=== PATIENT | female | born 1965 | race Caucasian/White ===

== ENCOUNTER 2017-07-28 22:26 | Observation (INO) ==
[2017-07-28] MEDS ORDERED: Aspirin 81 MG TAB.CHEW PO ONE (22:38)
[2017-07-28] MEDS ORDERED: 0.9 % Sodium Chloride 500 ML IVC ONE (22:38)
[2017-07-28] MEDS ORDERED: GI Cocktail 40 ML EACH PO ONE (22:39)
[2017-07-28 22:53] LABS: Basophils # 0.1 K/mcL (0.0-0.2); Basophils % 0.5 %; Eosinophils # 0.7 K/mcL (0.0-0.6); Eosinophils % 6.1 %; Hemoglobin 13.3 g/dL (11.5-15.4); Immature Granulocytes % 0.2 % (0-4); Lymphocytes # 5.3 K/mcL (0.6-4.6); Lymphocytes % 45.8 %; Mean Corpuscular HGB Conc 34.1 g/dL (31.6-35.5); Mean Corpuscular Hemoglobin 29.8 pg (28.0-33.3); Mean Corpuscular Volume 87.4 fL (83.0-100.0); Monocytes # 0.9 K/mcL (0.0-1.3); Monocytes % 7.4 %; Neutrophils # 4.6 K/mcL (1.6-8.9); Platelet Count 325 K/mcL (140-400); Red Blood Count 4.46 M/mcL (3.82-4.97)
[2017-07-28 22:55] LABS: Prothrombin Time 11.1 Seconds (9.4-12.1)
[2017-07-28 22:57] LABS: Activated Partial Thrombo Time 36.5 Seconds (26.0-36.0)
[2017-07-28] MEDS ORDERED: Isovue-370 500 ML INFUS..BTL IV ONE (23:14)
[2017-07-28 23:16] LABS: BUN/Creatinine Ratio 12 (6-26); Blood Urea Nitrogen 12 mg/dL (6-20); Calcium 10.2 mg/dL (8.6-10.3); Carbon Dioxide 26 mEq/L (23-29); Chloride 102 mEq/L (98-107); Glucose 127 mg/dL (70-105); Osmolality,Calculated 285 (280-300); Potassium 3.3 mEq/L (3.5-5.1); Sodium 137 mEq/L (136-145); eGFR For African Americans > 60 (> 60); eGFR For Non-African Americans 57 (> 60)
[2017-07-28 23:19] LABS: Troponin I 0.06 ng/mL (< 0.04)
[2017-07-28] MEDS ORDERED: Nitroglycerin 0.4 MG TAB.SUBL SL PRN (23:20)
[2017-07-28 23:26] LABS: Platelet Estimate Normal (Normal)
--- NOTE | 2017-07-29 01:36 | Emergency Department Note ---
Disposition Clinical Impression: Elevated troponin I level Chest pain Qualifiers: Chest pain type: unspecified Qualified Code(s): R07.9 - Chest pain, unspecified Disposition: Admitted As Inpatient Condition: Good General Adult HPI - General Chief complaint: ED Chest Pain Stated complaint: chest pain Time Seen by Provider: 07/28/17 22:28 Nursing Notes Reviewed: Yes Vital Signs Reviewed: Yes - History of Present Illness Pain Scale: 2 - Related Data Home Medications Medication Instructions Recorded Confirmed Omeprazole [PriLOSEC] 20 mg PO DAILY 07/29/17 07/29/17 Allergies Allergy/AdvReac Type Severity Reaction Status Date / Time Lodine Allergy Hives Uncoded 07/28/17 22:42 Past Medical History - Past Medical History Medical history: Reports: GERD - Social History Smoking Status: Former smoker Alcohol use: Reports: none Drug use: Reports: marijuana Physical Exam - General General appearance: alert Course Vital Signs Temperature 97.7 F 07/28/17 22:29 Pulse Rate 59 07/28/17 22:29 Respiratory Rate 20 07/28/17 22:29 Blood Pressure 173/113 07/28/17 22:29 O2 Sat by Pulse Oximetry 100 07/28/17 22:29 Temperature 97.7 F 07/28/17 22:29 Pulse Rate 98 07/29/17 02:03 Respiratory Rate 18 07/29/17 02:03 Blood Pressure 112/87 07/29/17 02:03 O2 Sat by Pulse Oximetry 98 07/29/17 02:03 Oxygen Delivery Oxygen Delivery Room Air Medical Decision Making - Lab Data Result diagrams: 07/28/17 22:35 07/28/17 22:35 Lab Results 07/28/17 07/28/17 07/28/17 Range/Units 22:35 22:35 22:35 WBC 11.6 H (4.3-11.1) K/mcL RBC 4.46 (3.82-4.97) M/mcL Hgb 13.3 (11.5-15.4) g/dL Hct 39.0 (35.3-44.9) % MCV 87.4 (83.0-100.0) fL MCH 29.8 (28.0-33.3) pg MCHC 34.1 (31.6-35.5) g/dL RDW 13.0 (11.5-14.5) % Plt Count 325 (140-400) K/mcL MPV 10.0 (9.4-12.4) fL Immature Gran % 0.2 (0-4) % Seg Neutrophils % 40.0 % Lymphocytes % 45.8 % Monocytes % 7.4 % Eosinophils % 6.1 % Basophils % 0.5 % Neutrophils # 4.6 (1.6-8.9) K/mcL Lymphocytes # 5.3 H (0.6-4.6) K/mcL Monocytes # 0.9 (0.0-1.3) K/mcL Eosinophils # 0.7 H (0.0-0.6) K/mcL Basophils # 0.1 (0.0-0.2) K/mcL Platelet Estimate Normal (Normal) PT 11.1 (9.4-12.1) Seconds INR 1.0 APTT 36.5 H (26.0-36.0) Seconds Sodium 137 (136-145) mEq/L Potassium 3.3 L (3.5-5.1) mEq/L Chloride 102 (98-107) mEq/L Carbon Dioxide 26 (23-29) mEq/L BUN 12 (6-20) mg/dL Creatinine 1.03 (0.60-1.20) mg/dL Est GFR ( Amer) > 60 (> 60) Est GFR (Non-Af Amer) 57 L (> 60) BUN/Creatinine Ratio 12 (6-26) Glucose 127 H (70-105) mg/dL Calculated Osmolality 285 (280-300) Calcium 10.2 (8.6-10.3) mg/dL Troponin I 0.06 H* (< 0.04) ng/mL Attestation Statement - Attestation Attestation: I, Giovany Cuellar MD, personally evaluated this patient and discussed their management with the resident physician. I reviewed the resident's note and agree with the documented findings, medical decision making, and plan of care. 51-year-old female presents to the emergency department with a complaint of severe burning substernal chest pain which started just shortly prior to arrival. She states the pain radiates straight through to her back and also up to her shoulders and down the left arm. Some nausea with the pain. Mild shortness of breath. Mild diaphoresis. No prior history of similar episodes. Symptom onset was sudden and symptoms have been constant since onset. It does not seem worse with walking or exertion or breathing. There has been no cough or fever. No prior history of hypertension or heart disease. Patient was a smoker in the past but quit smoking about 2 years ago. She states that she does have a history of severe acid reflux. On examination patient is a well-developed well-nourished female in no acute distress. She is alert and oriented 3. There is no cyanosis or diaphoresis. She is somewhat anxious. Chest is nontender to palpation. Breath sounds are clear and equal bilaterally. Heart regular rate and rhythm. Abdomen soft and nontender with normal bowel sounds. No pedal edema. EKG shows a sinus bradycardia with ventricular rate of 57. No acute ST segment elevation or depression. No ectopy or arrhythmia. Chest x-ray negative. CTA of the chest negative for pulmonary embolism or other acute abnormality. Labs reviewed. Troponin 0.06. The hospitalist, Dr. Lovelace, was consulted and accepted admission of the patient.
--- NOTE | 2017-07-29 01:43 | Emergency Department Note ---
Disposition Clinical Impression: Chest pain Qualifiers: Chest pain type: unspecified Qualified Code(s): R07.9 - Chest pain, unspecified Disposition: Admitted As Inpatient Condition: Good Referrals: NONE,PCP [Primary Care Provider] - Forms: ED Satisfaction Letter Chest Pain HPI - General Chief Complaint: ED Chest Pain Stated Complaint: chest pain Time Seen by Provider: 07/28/17 22:28 Source: patient Mode of arrival: ambulatory Limitations: no limitations Vital Signs Reviewed: Yes Nursing Notes Reviewed: Yes - History of Present Illness HPI Narrative: Patient presents today for evaluation of chest pain. Patient states that she was at a ball game when she had sudden onset chest pain. Patient states she was going to get something to eat. Patient had what she describes as burning across her chest. Patient states that she has had bad acid reflux in the past but nothing quite this severe. Patient initially presented with mild bradycardia hypertension. Patient also had mild tachypnea. Patient's symptoms started just prior to arrival. She states not necessarily worse with exertion. Patient does not have associated diaphoresis or nausea or vomiting. Patient is unable to further characterize pain. Patient does take Adipex as well as another fat burner for weight loss but has not taken her Adipex today. Former cigarette smoker. Smokes marijuana. Severity scale (1-10): 2 - Related Data Home Medications Medication Instructions Recorded Confirmed Omeprazole [PriLOSEC] 20 mg PO DAILY 07/29/17 07/29/17 Allergies Allergy/AdvReac Type Severity Reaction Status Date / Time Lodine Allergy Hives Uncoded 07/28/17 22:42 Review of Systems: CONSTITUTIONAL: No weight loss, fever, chills, weakness or fatigue. HEENT: Eyes: No visual changes. Ears, Nose, Throat: No hearing loss, difficulty talking or unable to swallow. SKIN: No rash or itching. CARDIOVASCULAR: Chest pain RESPIRATORY: Shortness of breath GASTROINTESTINAL: No anorexia, nausea, vomiting or diarrhea. No abdominal pain or blood. GENITOURINARY: No burning on urination or hematuria. NEUROLOGICAL: No headache, dizziness, syncope, paralysis, ataxia, numbness or tingling in the extremities. No change in bowel or bladder control. MUSCULOSKELETAL: No muscle pain, back pain, joint pain or stiffness. Chest Pain PMH - Past Medical History Medical history: Reports: GERD - Social History Smoking Status: Former smoker Alcohol use: Reports: none Drug use: Reports: marijuana Physical Exam General: Well appearing, nontoxic, no acute distress Head: Normocephalic Atraumatic Eyes: PERRL, EOMI ENT: Airway patent, no stridor Neck: supple, no meningismus Chest: Lungs clear to auscultation bilateral Cardiac: Regular rate and rhythm, no murmurs, rubs or gallops Abdomen: soft, nontender, nondistended; no guarding, rebound, or tenderness to percussion Musculoskeletal: Calves symmetric, nontender, no palpable cord Skin: No rash, normal skin tone Neuro: Alert and Oriented to person, place, and time; No focal deficit, CN 2-12 symmetric and intact - General General appearance: alert Course - Reevaluation(s) Reevaluation #1: Patient did not improved with GI cocktail Reevaluation #2: improved with bo. cta negative. troponin elevated - Consultations Consultation #1: Discussed with hospitalist. Patient accepted for admission Vital Signs Temperature 97.7 F 07/28/17 22:29 Pulse Rate 59 07/28/17 22:29 Respiratory Rate 20 07/28/17 22:29 Blood Pressure 173/113 07/28/17 22:29 O2 Sat by Pulse Oximetry 100 07/28/17 22:29 Temperature 97.7 F 07/28/17 22:29 Pulse Rate 79 07/29/17 01:06 Respiratory Rate 18 07/29/17 01:06 Blood Pressure 107/77 07/29/17 01:06 O2 Sat by Pulse Oximetry 97 07/29/17 01:06 Oxygen Delivery Oxygen Delivery Room Air Chest Pain - Medical Records Medical records reviewed: Yes I reviewed the patient's medical records. - Lab Data Lab results reviewed: Yes I reviewed the patient's lab results. Result diagrams: 07/28/17 22:35 07/28/17 22:35 Lab Results 07/28/17 07/28/17 07/28/17 Range/Units 22:35 22:35 22:35 WBC 11.6 H (4.3-11.1) K/mcL RBC 4.46 (3.82-4.97) M/mcL Hgb 13.3 (11.5-15.4) g/dL Hct 39.0 (35.3-44.9) % MCV 87.4 (83.0-100.0) fL MCH 29.8 (28.0-33.3) pg MCHC 34.1 (31.6-35.5) g/dL RDW 13.0 (11.5-14.5) % Plt Count 325 (140-400) K/mcL MPV 10.0 (9.4-12.4) fL Immature Gran % 0.2 (0-4) % Seg Neutrophils % 40.0 % Lymphocytes % 45.8 % Monocytes % 7.4 % Eosinophils % 6.1 % Basophils % 0.5 % Neutrophils # 4.6 (1.6-8.9) K/mcL Lymphocytes # 5.3 H (0.6-4.6) K/mcL Monocytes # 0.9 (0.0-1.3) K/mcL Eosinophils # 0.7 H (0.0-0.6) K/mcL Basophils # 0.1 (0.0-0.2) K/mcL Platelet Estimate Normal (Normal) PT 11.1 (9.4-12.1) Seconds INR 1.0 APTT 36.5 H (26.0-36.0) Seconds Sodium 137 (136-145) mEq/L Potassium 3.3 L (3.5-5.1) mEq/L Chloride 102 (98-107) mEq/L Carbon Dioxide 26 (23-29) mEq/L BUN 12 (6-20) mg/dL Creatinine 1.03 (0.60-1.20) mg/dL Est GFR ( Amer) > 60 (> 60) Est GFR (Non-Af Amer) 57 L (> 60) BUN/Creatinine Ratio 12 (6-26) Glucose 127 H (70-105) mg/dL Calculated Osmolality 285 (280-300) Calcium 10.2 (8.6-10.3) mg/dL Troponin I 0.06 H* (< 0.04) ng/mL - Radiology Data Radiology results reviewed: Yes I reviewed the patient's radiology results. - EKG Data EKG attestation: Yes I reviewed and interpreted this EKG. EKG results narrative: EKG shows sinus bradycardia with ventricular rate of 57. MI 13. QRS 84. QTC 389. Patient has no significant ST elevations or depressions. No previous EKG for comparison. Repeat EKG shows sinus rhythm with ventricular rate of 71. MI interval 164. QRS 97. QTC 444. No significant changes from previous.
[2017-07-29] MEDS ORDERED: Naloxone 0.4 MG/ML INJ IVP PRN (01:58)
[2017-07-29] MEDS ORDERED: Acetaminophen 325 MG TABLET PO PRN (01:58)
--- NOTE | 2017-07-29 02:24 | Internal Med History&Physical ---
Date of Encounter: 07/29/17 Time of Encounter: 01:30 Internal Medicine - H&P: HPI Chief complaint: Chest pain Admitted From: Home Plans for Post Hospital Care: Home History of present illness: Ms. Cook is a 51 year old female present to emergency room for chest pain. Past medical history is significant for severe GERD. Patient said the chest pain started the from 10 PM, sudden onset when she is at rest. The pain located on mid chest, burning, radiated to left arm, 9-10 out of 10. Patient denies shortness of breath or nausea, but had diaphoresis when she has the pain. Patient denies palpitation. The chest pain lasted about 20- 30 minutes and subside gradually. When patient gets to ER, she described the pain is 8/10. She was treated with aspirin and sublingual nitroglycerin, her pain get down to 2/10 after treatment. When I saw patient in the emergency room , she lays on bed comfortably without any acute distress. In the emergency room , EKG shows no significant ST-T change. Chest x-ray negative. First troponin 0.06. CTA shows negative for PE. Patient was admitted for further management. Past Med Surg Social Fam HX - Past Medical History Medical history: GERD - Social History Smoking Status: Former smoker Alcohol use: none Drug use: marijuana - Family History Mother History Unknown: Yes Internal Medicine - H&P: Meds Omeprazole [PriLOSEC] 20 mg PO DAILY 07/29/17 [History] 3 Allergy/AdvReac Type Severity Reaction Status Date / Time Lodine Allergy Hives Uncoded 07/28/17 22:42 All Systems PM: A 10-system review of systems was performed and is negative for pertinent findings except as documented above in the HPI. - Constitutional Vitals: Temp Pulse Resp BP Pulse Ox 97.7 F 98 18 112/87 98 07/28/17 22:29 07/29/17 02:03 07/29/17 02:03 07/29/17 02:03 07/29/17 02:03 General appearance: Present: A&O X 3, no acute distress, answers questions appropriately - Head Head exam: Present: atraumatic, normocephalic - Eye Eye exam: Present: PERRL, conjuntiva pink, sclera anicteric Pupils: Present: PERRL - Neck Neck exam general surgery: Present: supple, trachea midline. Absent: lymphadenopathy - Respiratory Respiratory exam: Present: chest wall tenderness (Mild tenderness on mid-lower chest wall.), CTAB. Absent: accessory muscle use, rales, rhonchi, wheezes - Cardiovascular Cardiovascular exam: Present: RRR, +S1, +S2. Absent: diastolic murmur, gallop, rubs, systolic murmur - GI/Abdominal GI/Abdominal exam: Present: normal bowel sounds, soft, no peritoneal signs. Absent: distended, tenderness - Extremities Exam Extremities exam: Present: warm, radial pulses palpable and symmetrical. Absent : calf tenderness, cyanotic, pedal edema - Neurological Exam Neurological exam: Present: CN II-XII intact, oriented X3, no focal deficits. Absent: pronater drift, facial droop, speech deficit - Skin Skin exam: Present: dry, intact Internal Med - H&P Results - Labs CBC & Chem 7: 07/28/17 22:35 07/28/17 22:35 - Assessment and plan (1) GERD (gastroesophageal reflux disease) Current Visit: Yes Status: Acute Assessment and plan: Patient has history of GERD, will place patient on IV pantoprazole. Qualifiers: Esophagitis presence: esophagitis presence not specified Qualified Code(s) : K21.9 - Gastro-esophageal reflux disease without esophagitis (2) Lung nodule Current Visit: Yes Status: Acute Assessment and plan: Incidentally found in CTA. 6mm lung nodule. Patient has history of smoking and quited 2 years ago. Per radiology protocol recommendation, patient need follow- up imaging in 12 months. I have discussed that with patient, she agrees to follow-up closely with primary doctor. (3) DVT prophylaxis Current Visit: Yes Status: Acute Assessment and plan: Heparin subcutaneously (4) Chest pain Current Visit: Yes Status: Acute Assessment and plan: Patient has chest pain, with left arm radiation and diaphoresis, seems respond to nitroglycerin. She has mild elevated first troponin. Need to consider ACS/ NSTEMI. - We will place patient on continuous cardiac monitoring. - Track totally 3 sets of troponin to see the trend - Echocardiogram in a.m. - The chest pain is some kind of atypical as patient described the pain as burning, she has no shortness of breath or nausea. We do not have her previous troponin level available to compare. The pain subsided already and the patient is in no acute distress now. And EKG is unremarkable. Considering benefits and risks, will hold heparin drip at this point. However, if second troponin elevated, we will consider to start heparin drip and cardio consult. Will keep nothing by mouth at this point. Qualifiers: Chest pain type: unspecified Qualified Code(s): R07.9 - Chest pain, unspecified - Time Spent With Patient Total time spent is greater than 50% in coordination of care (as documented) at patient's floor/unit and/or counseling patient: 40 minutes Greater than 35 minutes
[2017-07-29] MEDS: 0.9 % Sodium Chloride 1,000 ML IVC SCH ×2 (03:15→15:00)
[2017-07-29] MEDS ORDERED: *HR* Heparin 5,000 UNIT/ML VIAL SQ SCH (06:00)
[2017-07-29 06:36] LABS: Basophils % 0.3 %; Eosinophils # 0.3 K/mcL (0.0-0.6); Eosinophils % 3.5 %; Hematocrit 37.1 % (35.3-44.9); Hemoglobin 12.2 g/dL (11.5-15.4); Immature Granulocytes % 0.3 % (0-4); Lymphocytes # 2.8 K/mcL (0.6-4.6); Lymphocytes % 29.6 %; Mean Corpuscular HGB Conc 32.9 g/dL (31.6-35.5); Mean Corpuscular Hemoglobin 28.9 pg (28.0-33.3); Mean Corpuscular Volume 87.9 fL (83.0-100.0); Mean Platelet Volume 10.2 fL (9.4-12.4); Monocytes # 0.9 K/mcL (0.0-1.3); Monocytes % 9.2 %; Neutrophils # 5.3 K/mcL (1.6-8.9); Platelet Count 271 K/mcL (140-400); Red Blood Count 4.22 M/mcL (3.82-4.97); Red Cell Distribution Width 13.1 % (11.5-14.5); Segmented Neutrophils % 57.1 %
[2017-07-29 06:41] LABS: BUN/Creatinine Ratio 12 (6-26); Blood Urea Nitrogen 10 mg/dL (6-20); Calcium 9.1 mg/dL (8.6-10.3); Carbon Dioxide 25 mEq/L (23-29); Chloride 109 mEq/L (98-107); Glucose 104 mg/dL (70-105); Magnesium 2.1 mg/dL (1.6-2.6); Osmolality,Calculated 287 (280-300); Potassium 3.9 mEq/L (3.5-5.1); Sodium 139 mEq/L (136-145); eGFR For African Americans > 60 (> 60); eGFR For Non-African Americans > 60 (> 60)
[2017-07-29 06:50] LABS: Troponin I 0.21 ng/mL (< 0.04)
[2017-07-29] MEDS ORDERED: *HR* Heparin 5,000 UNIT/ML VIAL IVP ONE (06:53)
[2017-07-29] MEDS ORDERED: *HR* Heparin 5,000 UNIT/ML VIAL IVP PRN ×2 (06:53)
[2017-07-29] MEDS ORDERED: Heparin 25,000 UNIT/500 ML D5W 25,000 UNIT/500 ML BAG IVC SCH (07:00)
[2017-07-29] MEDS ORDERED: Pantoprazole 40 MG VIAL IVP SCH (09:00)
--- NOTE | 2017-07-29 09:40 | Cardiology Consult Note ---
Date of Encounter: 07/29/17 Time of Encounter: 09:37 Assessment and Plan (1) NSTEMI (non-ST elevated myocardial infarction) Current Visit: Yes Status: Acute Troponin 0.06, 0.21. Presented with midsternal chest pain radiating down left arm associated with dyspnea and diaphoresis, improved with nitro. BP was 170s/ 110s on presentation, since improved. EKG unremarkable. Risk factors for CAD include prior tobacco abuse, family hx. Currently on heparin gtt. Start ASA, Statin, BB. Recommend LHC to further evaluate. R/B/A discussed. Pt is hesitant, states she would like to get echo results first before deciding on LHC. TTE to evaluate structure and function. Trend 3rd troponin. Continue to follow. Discussion w patient/family: The assessment and plan as outlined above was discussed with the patient and/or family members who expressed understanding and agreement. All questions were answered. Thank you for involving us in the care of your patient. Please call with any questions. I will discuss all the above with Dr. Cook and make changes as necessary. History of Present Illness Consult date: 07/29/17 Consult reason: NSTEMI Chief complaint: Chest pain History of present illness: Ms. Cook is a 51 year old female with PMH of prior tobacco abuse, GERD, that presented to ED for acute onset of chest pain--midsternal with radiation to left arm, associated with dyspnea and diaphoresis, improved with nitro in ED. Troponin 0.06, 0.21, cardiology consulted for further recs. Pt reports she started having midsternal/epigastric pain last year and underwent GI workup without significant findings. Reports family hx of heart disease with multiple relatives dying at young age from MIs. EKG unremarkable. Currently chest pain free. Past Med Surg Social Fam HX - Past Medical History Medical history: GERD - Past Surgical History Surgical History: hysterectomy - Social History Smoking Status: Former smoker Packs per day: vapes Alcohol use: none Drug use: marijuana - Family History Mother History Unknown: Yes Living Status: Still Living Hx Family Cardiac Disorders: Yes Hx Family Respiratory Disorders: Yes (Asthma) Hx Family Cancer: No Hx Family GI Disorders: No Hx Family Genitourinary Disorders: No Hx Family Endocrine Disorder: No Hx Family Musculoskeletal Disorders: No Hx Family Reproductive Disorders: Yes (uterine tumor) Father Living Status: Still Living Hx Family Cardiac Disorders: No Hx Family Respiratory Disorders: No Hx Family Cancer: No Hx Family GI Disorders: No Hx Family Genitourinary Disorders: No Hx Family Endocrine Disorder: No Hx Family Musculoskeletal Disorders: No Hx Family Neuromuscular Disorders: No Hx Family Neurologic Disorders: No Hx Family HEENT Disorders: No Hx Family Autoimmune Disorders: No Hx Family Reproductive Disorders: No Hx Family Psychosocial Disorders: No Hx Family Medical Disorders: No Medications and Allergies Omeprazole [PriLOSEC] 20 mg PO DAILY 07/29/17 [History] Phentermine HCl [Adipex-P] 37.5 mg PO DAILY 07/29/17 [History] 3 Allergy/AdvReac Type Severity Reaction Status Date / Time Lodine Allergy Hives Uncoded 07/28/17 22:42 All Systems Review: The remainder of the systems were reviewed and are negative - Cardiovascular Cardiovascular: as per HPI, chest pain at rest, chest pain with exertion, diaphoresis, dyspnea on exertion, radiating jaw, neck or arm pain - Respiratory Respiratory: dyspnea Physical Examination Vital Signs, Last 4 Hours Temp Pulse Resp BP Pulse Ox 07/29/17 07:00 97.9 F 59 18 131/82 97 Vital Signs Temp Pulse Resp BP Pulse Ox 07/29/17 07:00 97.9 F 59 18 131/82 97 07/29/17 03:17 98.8 F 94 19 137/79 98 07/29/17 02:03 98 18 112/87 98 07/29/17 01:06 79 18 107/77 97 07/28/17 22:29 97.7 F 59 20 173/113 100 Intake and Output 07/28/17 07/29/17 07/29/17 23:59 07:59 15:59 Intake Total 500 / 500 Output Total 800 / 800 Balance 500 / 500 -800 / -800 Intake: IV Fluids 500 / 500 0.9 % Sodium Chloride 500 ML @ 500 / 500 1875 mls/hr IVC .Q16M ONE Rx#: [id number] Output: Urine 800 / 800 Other: Weight 66.224 kg 68 kg Patient Weight 07/29/17 23:59 Weight 68 kg General: Conversant, No Apparent Distress HEENT: Atraumatic, Normocephaly, Mucus Membranes Moist Neck: No JVD, Normal carotid pulses Cardiac: Reg Rate and Rhythm, Normal S1 and S2, No Murmur Lungs: Normal Breath Sounds, No Wheeze, Rales, Rhonchi Neuro: Alert and responsive, No focal deficits noted Abdomen: Soft Skin: No rashes noted on visualized skin Musculoskeletal: No Chest Wall Tenderness Extremities: No Clubbing, No Cyanosis, No Edema, Normal Pulses Results 07/29/17 05:55 07/29/17 05:55 Lab Results 07/29/17 07/29/17 05:55 05:55 WBC 9.4 Hgb 12.2 Hct 37.1 Plt Count 271 Sodium 139 Potassium 3.9 Chloride 109 H Carbon Dioxide 25 BUN 10 Creatinine 0.82 Glucose 104 Calcium 9.1 Magnesium 2.1 Troponin I 0.21 H* Short CBC 07/29/17 07/28/17 Range/Units 05:55 22:35 WBC 9.4 11.6 H (4.3-11.1) K/mcL Hgb 12.2 13.3 (11.5-15.4) g/dL Hct 37.1 39.0 (35.3-44.9) % Plt Count 271 325 (140-400) K/mcL Neutrophils # 5.3 4.6 (1.6-8.9) K/mcL BMP 07/29/17 07/28/17 Range/Units 05:55 22:35 Sodium 139 137 (136-145) mEq/L Potassium 3.9 3.3 L (3.5-5.1) mEq/L Chloride 109 H 102 (98-107) mEq/L Carbon Dioxide 25 26 (23-29) mEq/L BUN 10 12 (6-20) mg/dL Creatinine 0.82 1.03 (0.60-1.20) mg/dL Glucose 104 127 H (70-105) mg/dL Calcium 9.1 10.2 (8.6-10.3) mg/dL Cardiac Enzymes 07/29/17 07/28/17 Range/Units 05:55 22:35 Troponin I 0.21 H* 0.06 H* (< 0.04) ng/mL Impressions Chest X-Ray 07/28/17 22:38 IMPRESSION: 1. No acute cardiopulmonary disease. D/ / Giorgi Mcdonough MD / Giorgi Mcdonough MD Interpreting Provider: Giorgi Mcdonough MD Chest CTA 07/28/17 23:14 IMPRESSION: No evidence of pulmonary embolism or acute pulmonary abnormality. Small pulmonary nodules measuring up to 0.6 cm. Etiology is nonspecific. Consider follow-up per guidelines below. Mild emphysema. RECOMMENDATIONS: Fleischner Society guidelines for follow-up and management of incidentally detected pulmonary nodules: Multiple Solid Nodules: Nodule size less than 6 mm In a low-risk patient, no routine follow-up. In a high-risk patient, optional CT at 12 months. - Low risk patients include individuals with minimal or absent history of smoking and other known risk factors. - High risk patients include individuals with a history or smoking or known risk factors. Radiology 2017 http://pubs.[facility]na.org/doi/full/10.1148/[email or web address] D/ / 07/29/2017 07:04:57 Giorgi Mcdonough MD / dot Interpreting Provider: Giorgi Mcdonough MD Active Medications Acetaminophen (Tylenol) 650 mg PO Q6HR PRN PRN Reason: Mild Pain/Fever Stop: 01/28/18 01:59 Heparin Sodium (Porcine) (Heparin) 4,000 unit IVP Q6HR PRN PRN Reason: SEE COMMENTS Stop: 01/28/18 06:54 Heparin Sodium (Porcine) (Heparin) 2,000 unit 30 unit/kg (2000 unit) IVP Q6H PRN PRN Reason: SEE COMMENTS Stop: 01/28/18 06:54 Sodium Chloride (0.9 % Sodium Chloride) 1,000 mls @ 90 mls/hr IVC .Q11H7M ERIN Stop: 07/30/17 00:13 Last Admin: 07/29/17 03:15 Dose: 90 mls/hr Heparin Sodium/Dextrose (Heparin 25,000 Unit/500 Ml D5w) 25,000 unit in 500 mls @ 16.32 mls/hr IVC .Q24H ERIN; 12 UNIT/KG/HR PRN Reason: Protocol Stop: 01/28/18 07:01 Last Admin: 07/29/17 07:35 Dose: 12 unit/kg/hr, 16.32 mls/hr Naloxone HCl (Narcan) 0.4 mg IVP Q2MIN PRN PRN Reason: SEE COMMENTS Stop: 11/10/18 01:59 Nitroglycerin (Nitroglycerin) 0.4 mg SL Q5MIN PRN PRN Reason: Chest Pain Stop: 01/27/18 23:21 Last Admin: 07/28/17 23:48 Dose: 0.4 mg Pantoprazole Sodium (Protonix) 40 mg IVP DAILY ERIN Stop: 01/28/18 09:01 Last Admin: 07/29/17 07:42 Dose: 40 mg - EKG Interpretation EKG results cardiology: personally reviewed (SR), other (12 hr tele AVG HR 70,SR , no significant pauses or arrhythmias) Consult Discharge Plan - Plan Referrals: NONE,PCP [Primary Care Provider] -
--- NOTE | 2017-07-29 09:45 | Internal Med Progress Note ---
<Wesley Schultz - Last Filed: 07/29/17 09:48> Date of Encounter: 07/29/17 Time of Encounter: 09:41 - Assessment and plan (1) GERD (gastroesophageal reflux disease) Current Visit: Yes Status: Acute Assessment and plan: Patient has history of GERD denies burning epigastric pain, difficulty swallowing. d/c IV pantoprazole started on prilosec Qualifiers: Esophagitis presence: esophagitis presence not specified Qualified Code(s) : K21.9 - Gastro-esophageal reflux disease without esophagitis (2) Lung nodule Current Visit: Yes Status: Acute Assessment and plan: Incidentally found in CTA. 6mm lung nodule. will notify PCP for follow up CT in 12 months previous hx of smoking. (3) DVT prophylaxis Current Visit: Yes Status: Acute Assessment and plan: Heparin GTT (4) NSTEMI (non-ST elevated myocardial infarction) Current Visit: Yes Status: Acute Assessment and plan: patient presented with substernal chest pain 10/10 burning sensation with radiation to left arm, with "shaking", sob, diaphoresis troponin: 0.06, 0.21 third troponin pending risk factors: family hx, hx of smoking, on heparin Gtt echocardiogram penidng cardiology on board recommend heart catherization but patient hesitant lipid panel hgA1c start statin, metoprolol, aspirin. - Time Spent With Patient Total time spent is greater than 50% in coordination of care (as documented) at patient's floor/unit and/or counseling patient: - Subjective Interval history: Patient admitted overnight for chest pain. Her troponin is trending up. She denies chest pain at this moment. Cardiology is on board and has discussed catheterization with patient but patient is hesitant right now. She denies headache, blurry vision, palpitations, shortness of breath, abdominal pain. - Constitutional Vitals: Temp Pulse Resp BP Pulse Ox 97.9 F 59 18 131/82 97 07/29/17 07:00 07/29/17 07:00 07/29/17 07:00 07/29/17 07:00 07/29/17 07:00 General appearance: Present: A&O X 3, no acute distress, answers questions appropriately - Other Additional findings: General: plesant without distress HEENT: Head atraumatic, normocephalic, EOMI, PERRL, neck nontender to palpation , absent lymphadenopathy, Moist Mucous Membranes, Heart: Regular rate and rhythm with no murmur Lungs: Clear to auscultation bilaterally Abdomen: Soft nontender, nondistended positive bowel sounds Skin: warm and dry, absent rash Extremities: Absent pedal edema, Neuro: alert oriented x 3 Vascular: Pedal and radial pulses 2 out of 4 Internal Medicine: Result - Labs CBC & Chem 7: 07/29/17 05:55 07/29/17 05:55 Labs: Short CBC 07/29/17 Range/Units 05:55 WBC 9.4 (4.3-11.1) K/mcL Hgb 12.2 (11.5-15.4) g/dL Hct 37.1 (35.3-44.9) % Plt Count 271 (140-400) K/mcL Neutrophils # 5.3 (1.6-8.9) K/mcL BMP 07/29/17 05:55 Sodium 139 Potassium 3.9 Chloride 109 H Carbon Dioxide 25 BUN 10 Creatinine 0.82 Glucose 104 Calcium 9.1 Cardiac Enzymes 07/29/17 Range/Units 05:55 Troponin I 0.21 H* (< 0.04) ng/mL - ABG Interpretation ABG results: PT/INR, D-dimer PT 11.1 Seconds (9.4-12.1) 07/28/17 22:35 Consult Discharge Plan - Plan Referrals: NONE,PCP [Primary Care Provider] - <Song Gallardo - Last Filed: 07/29/17 12:22> Date of Encounter: 07/29/17 - Assessment and plan (1) GERD (gastroesophageal reflux disease) Current Visit: Yes Status: Acute Qualifiers: Esophagitis presence: esophagitis presence not specified Qualified Code(s) : K21.9 - Gastro-esophageal reflux disease without esophagitis (2) Lung nodule Current Visit: Yes Status: Acute (3) DVT prophylaxis Current Visit: Yes Status: Acute (4) NSTEMI (non-ST elevated myocardial infarction) Current Visit: Yes Status: Acute - Time Spent With Patient Total time spent is greater than 50% in coordination of care (as documented) at patient's floor/unit and/or counseling patient: - Constitutional Vitals: Temp Pulse Resp BP Pulse Ox 98 F 98 18 124/89 97 07/29/17 11:00 07/29/17 11:00 07/29/17 11:00 07/29/17 11:00 07/29/17 11:00 Internal Medicine: Result - Labs CBC & Chem 7: 07/29/17 05:55 07/29/17 05:55 Labs: Short CBC 07/29/17 Range/Units 05:55 WBC 9.4 (4.3-11.1) K/mcL Hgb 12.2 (11.5-15.4) g/dL Hct 37.1 (35.3-44.9) % Plt Count 271 (140-400) K/mcL Neutrophils # 5.3 (1.6-8.9) K/mcL BMP 07/29/17 05:55 Sodium 139 Potassium 3.9 Chloride 109 H Carbon Dioxide 25 BUN 10 Creatinine 0.82 Glucose 104 Calcium 9.1 Cardiac Enzymes 07/29/17 Range/Units 05:55 Troponin I 0.21 H* (< 0.04) ng/mL - ABG Interpretation ABG results: PT/INR, D-dimer PT 11.1 Seconds (9.4-12.1) 07/28/17 22:35 - Attending Attestation I examined this patient and my medical decision-making was reviewed with the Resident Physician on 07/29/17. I agree with the documented findings, disposition and treatment plan as described except to the extent set forth below. 51 F with significant hx of smoking being managed for NSTEMI. Currently chest pain free, very emotional, labs unremarkable, troponin is uptrending , cardio is following, follow ECHO, check A1C, Lipids, possible LHC today. Rest of details as in the resident physician's documentation
[2017-07-29] MEDS ORDERED: 0.9 % Sodium Chloride 1,000 ML ONE ×2 (12:41→13:34)
[2017-07-29] MEDS ORDERED: ISOVUE-370 200 ML INFUS..BTL IV ONE (12:42)
[2017-07-29] MEDS ORDERED: Nitroglycerin 1,000 MCG/10 ML VIAL IV ONE (12:42)
[2017-07-29] MEDS ORDERED: *HR* Heparin 10,000 UNIT/10 ML VIAL ONE (12:42)
[2017-07-29] MEDS ORDERED: Heparin 1,000 UNITS/500 mL 500 ML ONE (12:42)
--- NOTE | 2017-07-29 13:11 | Pre-Sedation Evaluation ---
Pre-sedation evaluation - Pre-sedation checklist Date of procedure: 07/29/17 Procedure: LHC Recent Vitals: Last Vital Signs Temp 98 F 07/29/17 11:00 Pulse 98 07/29/17 11:00 Resp 18 07/29/17 11:00 BP 124/89 07/29/17 11:00 Pulse Ox 97 07/29/17 11:00 ASA Classification *see protocol: CLASS II-Mild systemic disease
[2017-07-29] MEDS ORDERED: *HR* FentaNYL (PF) 100 MCG/2 ML VIAL ONE (13:30)
[2017-07-29] MEDS ORDERED: *HR* Midazolam HCl 2 MG/2 ML VIAL ONE (13:30)
[2017-07-29 13:32] LABS: INR 1.1; Prothrombin Time 11.3 Seconds (9.4-12.1)
--- NOTE | 2017-07-29 14:32 | Invasive Diagnostic Lab Proc ---
Name: Aretha Cook Date of Study: 07/29/2017 Date: 1965 Ht: 60.0in Medical Record#: [id number] Age: 51 Wt: 150.36lb Gender: Female BSA: 1.65 Order #: [id number] BMI: 29.36 Physicians Procedure Physician: Leroy Zaragoza MD Referring MD: Referring MD: Staff Name Position Time In SujitCinda sutherland RN Community Health Program Representative 01:21 PM Mayra Bailey RT Monitor 01:21 PM Keyana Huggins RT (R) Scrub 01:21 PM Indications Indication Non-Stemi Procedures Performed Procedure L HRT ARTERY/VENTRICLE ANGIO AORTOGRAPHY, ABDOMINAL S&I Pre-Procedure Checklist Informed consent is complete signed and on chart. H&P is on chart. ID band is on and ID verified with patient. Patient NPO for procedure The procedure was described for the patient and questions were answered. ECG is on chart. Plan of Care Patient will tolerate the procedure without complications. Adequate level of comfort will be maintained. Hemodynamics will remain stable Patient will recover from procedure without complications. Respiratory function will be maintained. Cardiac rhythm will remain stable. Patient temperature will be maintained. Patient and/or family have verbalized understanding of the procedure. Patient Education Chief Complaint/Reason for Test: Cardiac Cath Developmental Category: Adult (18-64 years) Developmentally Appropriate for Age: Yes Learning Barriers: None Education Needs: Procedure Education Method: Verbal Information Taught: Cardiac Cath Educational Evaluation: Able to repeat information Intravenous Access Time IV Size Location DC'd Fluid/Drip Rate Units RN 12:56 PM 20g 1 /" Patent On Arrival Lt Antecubital 0.9NaCl 25 ml/hr Allergies Lodine PCN Vital Signs Time BP (mmHg) HR (bpm) O2 Sat. RR (bpm) LOC 01:37 PM / % 4 = Oriented but drowsy 01:37 PM / % 4 = Oriented but drowsy 01:52 PM / % 4 = Oriented but drowsy 02:14 PM 121 / 84 55 100 % 01:30 PM 133 / 79 58 97 % 01:34 PM 136 / 74 62 99 % 01:39 PM 108 / 74 71 98 % 01:44 PM 114 / 72 58 100 % 01:49 PM 115 / 79 61 97 % 01:54 PM 120 / 73 52 94 % 01:59 PM 120 / 73 63 96 % 02:04 PM 123 / 78 61 % 02:09 PM 132 / 79 57 98 % Procedural Medications Time Medication Dose Units Method Given By 01:37 PM Oxygen 2 L/min nasal cannula Cinad Beckett RN 01:38 PM Versed 1 mg Intravenous Cinda Beckett RN 01:38 PM Fentanyl 50 mcg Intravenous Cinda Beckett RN 01:44 PM Lidocaine 2% 20 ml Subcutaneous Leroy Zaragoza MD 01:50 PM Versed 0.5 mg Intravenous Cinda Beckett RN 01:50 PM Fentanyl 25 mcg Intravenous Cinda Beckett RN 01:58 PM Lidocaine 2% 10 ml Subcutaneous Leroy Zaragoza MD ASA Classification: CLASS II- Mild systemic disease (i.e. well-controlled diabetes, hypertension, asthma, cigarette smoking) Sally Score Preprocedure Postprocedure Activity 2- Moves 4 extremities sustained head lift Activity Circulation 2- SBP +/= 20 points of pre-anesthetic level Circulation Consciousness 2- Awake and alert oriented x 3 Consciousness O2 Saturation 2- Able to maintain O2 satruation of 92% on room air O2 Saturation Respiratory 2- Able to deep breathe and cough well Respiratory Total Score 10 Total Score Contrast Agent: Isovue Diagnostic Contrast: 96 ml Total Contrast: 96 ml Fluoro Dose: 266 mGy Procedure Log Time Note Enter By 01:20 PM Pt arrived to laboratory animal caretaker 2 at 13:20 tsites 01:21 PM Cinda Beckett RN Position: Community Health Program Representative Time in: 13:21 tsites 01:21 PM Mayra Bailey RT Position: Monitor Time in: 13:21 tsites 01:21 PM Keyana Huggins RT (R) Position: Scrub Time in: 13:21 tsites 01:21 PM Patient charges- Angio tray pack, Navilyst 3mm J, Pulse Oximetry and ACIST tubing and transducer tsites 01:21 PM Case Delayed No tsites 01:21 PM Hair removed from procedure site in holding area using clippers. Bilateral groin prepped with Chloraprep by Mayra Bailey RT, then patient was draped. Skin intact. tsites 01:21 PM Physician arrived 13:21 tsites 01:21 PM ASA Class CLASS II- Mild systemic disease (i.e. well-controlled diabetes, hypertension, asthma, cigarette smoking) tsites 01:21 PM Meet and greet completed tsites 01:21 PM Sign in performed according to hospital policy. tsites 01:21 PM Procedure start 13:21 tsites 01:28 PM CathStat 01:28 PM Vitals capture started with the following parameters, Patient=Adult, Interval=5 min, Initial Ttihnpwt=127 mmHg, Deflation Rate=5 mmHg, Cuff placed on Right Arm 01:30 PM HR=58 bpm, ASMA=837/79 mmhg, SpO2=97 % 01:34 PM HR=62 bpm, YUWA=595/74 mmhg, SpO2=99 % 01:37 PM Time: 13:37 Patient comfortable and pain free: Yes tsites 01:37 PM Time: 13:37LOC: 4 = Oriented but drowsy tsites :37 PM Time out performed according to hospital policy tsites 01:38 PM Time: 13:37 Oxygen on at 2 L/min per nasal cannula by Cinda Beckett RN tsites 01:38 PM Time: 13:38 Versed 1 mg Intravenous Given by Cinda Beckett RN tsites 01:38 PM Time: 13:38 Fentanyl 50 mcg Intravenous Given by Cinda Beckett tsites 01:39 PM HR=71 bpm, PWKF=358/74 mmhg, SpO2=98 % 01:44 PM HR=58 bpm, YRVZ=362/72 mmhg, OoA6=587.0 % 01:44 PM Pressure channel 1 zero failed. 01:44 PM Time: 13:44 20 ml Lidocaine 2% to right groin Subcutaneous Given by Leroy Zaragoza MD tsites 01:45 PM Pressure channel 1 zero failed. 01:45 PM Pressure channel 1 zero failed. 01:45 PM Micro-Introducer Kit utilized for sheath placement tsites 01:46 PM Pressure channel 1 zero failed. 01:46 PM Pressure channel 1 zero failed. 01:46 PM Pressure channel 1 zeroed. 01:49 PM HR=61 bpm, SZFG=865/79 mmhg, SpO2=97.0 % 01:50 PM Time: 13:50 Versed .5 mg Intravenous Given by Cinda Beckett RN [email or web address] 01:50 PM Time: 13:50 Fentanyl 25 mcg Intravenous Given by Cinda Beckett RN 01:52 PM Time: 13:37LOC: 4 = Oriented but drowsy [email or web address] 01:52 PM Time: 13:37 Patient comfortable and pain free: Yes [email or web address] 01:53 PM Unsuccessful access attempt # 1 into the right Femoral artery. Manual pressure applied to achieve hemostasis.. [email or web address] 01:54 PM Unsuccessful access attempt # 2 into the right Femoral artery. Manual pressure applied to achieve hemostasis.. [email or web address] 01:54 PM HR=52 bpm, NJQM=718/73 mmhg, SpO2=94.0 %, Comment=sb 01:55 PM manual pressure applied to right groin kkallner :58 PM Time: 13:58 10 ml Lidocaine 2% to left groin Subcutaneous Given by Leroy Zaragoza MD kkallner :58 PM Micro-Introducer Kit utilized for sheath placement kkallner :59 PM Bolus angiogram of left Femoral complete: hand injection kkallner :59 PM HR=63 bpm, VPDH=591/73 mmhg, SpO2=96.0 % 01:59 PM Access obtained by percutaneous puncture. 6Fr 10cm Terumo Oakley sheath placed in left Femoral artery. [id number] kkallner 02:00 PM 5Fr FR 4 catheter inserted over the wire DN kkallner 02:00 PM wire removed kkallner 02:00 PM RCA angiography performed in multiple views. [email or web address] 02:00 PM Recorded Pressure: Ao, HR=59, Condition=Condition 1 (Aorta) Ao 114/83/98 02:01 PM Catheter removed kkallner 02:03 PM 5Fr FL 4 catheter inserted over the wire DN kkallner 02:03 PM wire removed kkallner 02:04 PM HR=61 bpm, VUCL=996/78 mmhg 02:06 PM LCA angiography performed in multiple views. [email or web address] 02:07 PM Catheter removed kkallner 02:07 PM 5Fr Pigtail catheter inserted over the wire DN kkallner 02:07 PM wire removed kkallner 02:07 PM Catheter selectively placed in left ventricle kkallner 02:07 PM Recorded Pressure: LV, HR=61, Condition=Condition 1 (Left Ventricle) LV 136/19/23 02:09 PM Recorded Pressure: LV, Ao, HR=62, Condition=Condition 1 (Left Ventricle) LV 123/28/31, (Aorta) Ao 129/93/111 02:09 PM HR=57 bpm, IDAK=275/79 mmhg, SpO2=98.0 % 02:10 PM Abdominal Aortagram [email or web address] 02:11 PM Time: 13:52 Patient comfortable and pain free: Yes [email or web address] 02:11 PM Time: 13:52LOC: 4 = Oriented but drowsy kkallner 02:12 PM wire and catheter removed kkallner 02:12 PM Coronary Dominance: right kkallner 02:12 PM Lesion found in Mid LAD. Pre Stenosis: 40 Pre STACY Flow: [email or web address] 02:13 PM Lesion found in Proximal Circumflex. Pre Stenosis: 25 Pre STACY Flow: [email or web address] 02:14 PM Lesion found in 1st Marginal. Pre Stenosis: 60 Pre STACY Flow: [email or web address] 02:14 PM Left Main Coronary Artery with 0% stenosis kkallner 02:14 PM Proximal Left Anterior Descending Coronary Artery with 0% stenosis. If graft is supplying this territory, 0 % stenosis. [email or web address] 02:14 PM Mid/Distal Left Anterior Descending Coronary Artery and diagonal branches with 40% stenosis. If graft is supplying this area, 0 % stenosis kkallner 02:14 PM Circumflex, Obtuse Marginal, Left Posterior Descending, and Left Posterolateral Coronary Arteries with 60 % stenosis. If graft is supplying this area, 0 % stenosis kkallner 02:14 PM Right Coronary, Right Posterior Descending Arteries with Right Posterolateral and Acute Marginal branches with 0 % stenosis. If graft is supplying this area, 0 % stenosis kkallner 02:14 PM Ramus with 0% stenosis. If graft is supplying this area, 0 % stenosis kkallner 02:14 PM HR=55 bpm, XEDB=565/84 mmhg, WmN2=237.0 % 02:14 PM Procedure completed at 14:14 [email or web address] 02:14 PM Did you address STACY flow and Dominance? Yes [email or web address] 02:14 PM Sign out completed: Radiation Dose 265.75 mGy Fluoro Time: 5.6 Isovue 370 - 200ml contrast 96 ml given by Leroy Zaragoza MD. Complications: NoneCardiac Rehab Consult needed: NoConfirmed administered medications: Yes [email or web address] 02:15 PM Isovue 370 - 200ml,1 Bottle(s) used. [email or web address] 02:15 PM Arterial sheath pulled, Angio-seal closure device used and was Successful [id number] S/N. kkallner 02:15 PM Estimated Blood Loss: minimal [email or web address] 02:15 PM Post ECG Sinus Bradycardia kkallner 02:15 PM Post Blood Pressure 121/84 kkallner 02:16 PM Information taught Cardiac Cath and Angioseal kkallner 02:16 PM Education needs Procedure, Plan of Care, and Responsibilities of Patient in Care [email or web address] 02:17 PM Learning barriers :None kkallner 02:17 PM Education Methods Verbal kkallner 02:17 PM Education evaluation Able to repeat information [email or web address] 02:17 PM Site status No bleeding/hematoma - Lt Groin as reported by Keyana Huggins RT (R) at 14:17 kkallner 02:17 PM Opsite applied kkallner 02:17 PM Plavix, Effient or Brilinta given No kkallner 02:17 PM Delay to floor No [email or web address] 02:17 PM Patient out of room: 14:17 kkallner 02:17 PM Family placed in consult room. [email or web address] 02:17 PM Complications: None kkallner 02:17 PM Fluoro Time: 5.6 [email or web address] 02:17 PM Isovue 370 - 200ml contrast 96 ml given by Leroy Zaragoza. [email or web address] 02:17 PM Radiation Dose 265.75 mGy [email or web address] 02:20 PM Site status Hematoma - Rt Groin as reported by Keyana Huggins RT (R) at 14:20 3-5 cm [email or web address] 02:25 PM Report given to Verenice NIELSEN [facility] Complication None None Hemodynamics Pressures Site Systolic/A Wave Diastolic/V Wave Mean AO 114 83 98 LV 136 19 23 LV 123 28 31 AO 129 93 111 Post Procedure Information Blood Pressure: 121/84 mmHg Rhythm: Sinus Bradycardia Post procedural instructions were given Closure Device Time Device Success/Fail Angio-Seal VIP Successful Site Checks Time Location Status Staff Sheath In? Note 02:17 PM Lt Groin No bleeding/hematoma Keyana Huggins RT (R) 02:20 PM Rt Groin Hematoma Keyana Huggins RT (R) 3-5 cm Pulses Time Site Pre-Procedure Post-Procedure Note 07/29/2017 2:20:00 PM Bilateral DP & PT 2+ 07/29/2017 2:21:00 PM Bilateral radial 2+ Updated by Patti Sites, RT (R) on 07/29/2017 2:25:18 PM Patti Sites, RT electronically signed on 07/29/2017 2:25:45 PM with status of Final
[2017-07-29 14:35] LABS: Activated Partial Thrombo Time 128.8 Seconds (26.0-36.0)
[2017-07-29 14:36] LABS: Heparin anti-factor XA UFH 0.59 IU/mL (0.30-0.70)
[2017-07-29] MEDS: Aspirin 81 MG TAB.CHEW PO SCH (17:12)
[2017-07-30 04:34] LABS: Basophils % 0.4 %; Eosinophils # 0.5 K/mcL (0.0-0.6); Eosinophils % 5.1 %; Hematocrit 37.9 % (35.3-44.9); Hemoglobin 12.3 g/dL (11.5-15.4); Immature Granulocytes % 0.2 % (0-4); Lymphocytes # 2.9 K/mcL (0.6-4.6); Lymphocytes % 30.5 %; Mean Corpuscular HGB Conc 32.5 g/dL (31.6-35.5); Mean Corpuscular Hemoglobin 28.5 pg (28.0-33.3); Mean Corpuscular Volume 87.7 fL (83.0-100.0); Monocytes # 0.8 K/mcL (0.0-1.3); Monocytes % 8.7 %; Neutrophils # 5.2 K/mcL (1.6-8.9); Platelet Count 270 K/mcL (140-400); Red Blood Count 4.32 M/mcL (3.82-4.97); Red Cell Distribution Width 13.2 % (11.5-14.5); Segmented Neutrophils % 55.1 %
[2017-07-30 05:00] LABS: Chol/HDL Ratio 4.7 (0-4.9)
[2017-07-30 05:01] LABS: BUN/Creatinine Ratio 10 (6-26); Blood Urea Nitrogen 8 mg/dL (6-20); Calcium 9.5 mg/dL (8.6-10.3); Carbon Dioxide 23 mEq/L (23-29); Chloride 112 mEq/L (98-107); Glucose 95 mg/dL (70-105); Osmolality,Calculated 290 (280-300); Potassium 4.1 mEq/L (3.5-5.1); Sodium 141 mEq/L (136-145); eGFR For African Americans > 60 (> 60); eGFR For Non-African Americans > 60 (> 60)
[2017-07-30 07:59] LABS: Estimated Average Glucose 126 mg/dl
--- NOTE | 2017-07-30 08:10 | Cardiology Progress Note ---
Date of Encounter: 07/30/17 Time of Encounter: 08:07 Assessment and Plan (1) NSTEMI (non-ST elevated myocardial infarction) Current Visit: Yes Status: Acute Troponin 0.06, 0.21, 0.09. EKG unremarkable. Risk factors for CAD include prior tobacco abuse, family hx. LHC yesterday mild mild one vessel coronary artery disease. The left ventricle is normal and has normal contractility EF 60% Small Vessel disease involving OM1. No intervention. TTE pending. Right femoral access site small hematoma, moderate ecchymosis. Left femoral access site healing well. No bleeding, hematoma or ecchymosis noted. Risk factor modification. S/P LHC restrictions discussed. Do not return to work for [address] Zaragoza after LHC, recommends DAPT (ASA and Plavix) for 3 months. Pt verbalizes understanding. Continue Statin. Stopped BB due to nocturnal pauses, longest 6.9 seconds. Cardiology signing off. Reconsult PRN. Will coordinate outpt follow-up in 1-2 weeks. (2) CAD (coronary artery disease) Current Visit: Yes Status: Acute As above, s/p LHC yesterday for NSTEMI, no intervention, mild one vessel coronary artery disease. 60% Small Vessel disease involving OM1. ASA, Plavix, Statin. D/C BB due to nocturnal pauses. Qualifiers: Coronary Disease-Associated Artery/Lesion type: [place] artery [place] vs. transplanted heart: [place] heart Associated angina: angina presence unspecified Qualified Code(s): I25.10 - Atherosclerotic heart disease of [place] coronary artery without angina pectoris (3) Sinus pause Current Visit: Yes Status: Acute Telemetry reviewed--AVG HR 66, SR. Nocturnal pauses, longest 6.9 seconds, 4.2, 3.7. Was during sleep, unaware. Will d/c BB. Recommend outpt sleep study. Discussion w patient/family: The assessment and plan as outlined above was discussed with the patient and/or family members who expressed understanding and agreement. All questions were answered. Thank you for involving us in the care of your patient. Please call with any questions. I will discuss all the above with Dr. Cook and make changes as necessary. Subjective Principal diagnosis: NSTEMI Interval history: LHC yesterday--mild one vessel coronary artery disease. The left ventricle is normal and has normal contractility EF 60% Small Vessel disease involving OM1. No intervention. TTE pending. Pt denies chest pain or dyspnea overnight. Reports right groin soreness--hematoma and moderate ecchymosis noted. Objective Vital Signs, Last 4 Hours Temp Pulse Resp BP Pulse Ox 07/30/17 06:49 98.5 F 77 16 118/85 98 Vital Signs Temp Pulse Resp BP Pulse Ox 07/30/17 06:49 98.5 F 77 16 118/85 98 07/30/17 03:55 69 16 119/84 97 07/29/17 21:45 98.3 F 63 17 120/88 98 07/29/17 15:00 97.8 F 60 16 141/85 100 07/29/17 11:00 98 F 98 18 124/89 97 Intake and Output 07/29/17 07/30/17 07/30/17 23:59 07:59 15:59 Output Total 1600 / 1600 1300 / 1300 Balance -1600 / -1600 -1300 / -1300 Output: Urine 1600 / 1600 1300 / 1300 Other: Weight 68.5 kg Patient Weight 07/30/17 23:59 Weight 68.5 kg General: Conversant, No Apparent Distress HEENT: Atraumatic, Normocephaly, Mucus Membranes Moist Neck: No JVD, Normal carotid pulses Cardiac: Reg Rate and Rhythm, Normal S1 and S2, No Murmur Lungs: Normal Breath Sounds, No Wheeze, Rales, Rhonchi Neuro: Alert and responsive, No focal deficits noted Abdomen: Soft, Non-Tender Skin: Other (right femoral access site small hematoma with moderate ecchymosis. Left femoral access site healing well. No bleeding, hematoma or ecchymosis noted.) Musculoskeletal: No Chest Wall Tenderness Extremities: No Clubbing, No Cyanosis, No Edema, Normal Pulses Results 07/30/17 04:08 07/30/17 04:08 Lab Results 07/29/17 07/29/17 07/30/17 12:33 12:33 04:08 WBC 9.5 Hgb 12.3 Hct 37.9 Plt Count 270 INR 1.1 APTT 128.8 H* D Sodium Potassium Chloride Carbon Dioxide BUN Creatinine Glucose Calcium Troponin I 0.09 H* 07/30/17 04:08 WBC Hgb Hct Plt Count INR APTT Sodium 141 Potassium 4.1 Chloride 112 H Carbon Dioxide 23 BUN 8 Creatinine 0.80 Glucose 95 Calcium 9.5 Troponin I - Imaging and Cardiology Echo: pending Cardiac cath: report reviewed - EKG Interpretation EKG results cardiology: other (12 hr tele AVG HR 66, SR, nocturnal pauses 6.9, 4.2 and 3.7 seconds.) Consult Discharge Plan - Plan Additional Instructions: RISK FACTORS: STOP SMOKING: If you smoke, STOP. Smoking or tobacco use significantly increases your risk of heart disease because nicotine causes the arteries to narrow or constrict. It also causes fats to stick to the artery. Your chances of having a heart attack are greatly increased if you continue to smoke. For more information, call the education line for smoking cessation 6-758-DNRATQK EAT A LOW FAT/CHOLESTEROL/SODIUM DIET: This diet may help reduce your chances of having a heart attack. LIFTING: Avoid lifting anything more than 10 pounds for 5-7 days Prior to straining, laughing, sneezing and/or coughing, apply manual pressure directly over insertion site. ACTIVITY: You may walk or climb stairs as tolerated You can resume sexual activity as tolerated In general, you are encouraged to engage in a minimum of 30 minutes or more of moderate intensity physical activity, such as brisk walking, daily or at least 3 -4 times weekly BATHING Do not submerge the site into water (bath tub, hot tub, swimming pool) for 1 week. This can be a source for infection into the blood stream. You may shower after 24 hours SITE CARE: After 24 hours, you may remove the dressing and leave the site open to air. Keep the site clean and dry. Clean gently and pat dry. You can expect bruising and tenderness that gradually resolve within a week or two. Return to work as instructed per your physician Resume driving as instructed per physician Keep all scheduled follow up appointments Resume medications as instructed IMPORTANT: If prescribed a Platelet Aggregation Inhibitor such as, Plavix, Brilinta or Effient: Duration of therapy is minimum one year These medications are often used in combination with Aspirin in prevention of future heart attacks Never discontinue unless consult with your Insurance Counselor STROKE (CVA) Risk factors for a stroke are: Age, cigarette smoking, diabetes, excessive alcohol consumption, family history, high blood pressure, overweight, physical inactivity, prior stroke, heart attack, diagnosis of carotid artery stenosis or other artery disease. Warning signs: Sudden numbness or weakness of the face, arm or leg; especially on one side of the body, sudden confusion, trouble speaking or understanding, sudden trouble seeing in one or both eyes, sudden trouble walking, dizziness, loss of balance or coordination, sudden severe headache with no cause. Call 911 or go to the Emergency Room. CONGESTIVE HEART FAILURE: If you have been diagnosed with Congestive Heart Failure (CHF) and your symptoms return, make an appointment with your physician Weigh yourself daily. Notify your physician if you have a weight gain of two or more pounds in one day or five or more pounds in one week. If you experience any difficulty breathing, please call 911 BLEEDING: Although the risk of bleeding is minimal, it can happen. If you have any bleeding from the site, apply firm pressure above the puncture site for 10-15 minutes. If the bleeding does not stop, continue manual pressure and call 911 Contact your physician if: You develop a fever greater than 101 degrees Fahrenheit Your site becomes reddened or has any drainage You have an increase in pain or burning at the site or if a large knot forms at the site. If you experience chest pain, shortness of breath, dizziness, or extreme tiredness, stop the activity and rest. Please notify your physicians office if you experience any of these symptoms and they are not relieved by rest please call 911! Referrals: Ro Foote, SOCIAL WELFARE CLERK [Advanced Practice Nurse] - 08/03/17 1:30 pm
[2017-07-30] MEDS: Aspirin 81 MG TAB.CHEW PO SCH (09:31)
[2017-07-30 10:54] VITALS: BP 128/88
--- NOTE | 2017-07-30 11:03 | Discharge Summary ---
- NOTES TO OUTPATIENT PROVIDER Notes to Outpatient Provider: Patient was admitted for an STEMI. Left heart catheterization showed mild one-vessel coronary artery disease. No intervention was done. Patient has been started on aspirin and Plavix for at least 3 months as per cardiology. She has also be started on statin. A1c was 6.0 indicating prediabetes.. We will recommend sleep study. Date of Encounter: 07/30/17 Time of Encounter: 11:01 - Discharge Diagnosis (1) NSTEMI (non-ST elevated myocardial infarction) Priority: Primary Status: Acute Assessment and Plan: Continue ASA, Plavix, Statin as outpatient ECHO is N. LHC showed mild one vessel disease (2) GERD (gastroesophageal reflux disease) Priority: Secondary Status: Chronic Assessment and Plan: Continue home meds Qualifiers: Esophagitis presence: esophagitis presence not specified Qualified Code(s) : K21.9 - Gastro-esophageal reflux disease without esophagitis (3) Lung nodule Priority: Secondary Status: Chronic Assessment and Plan: Follow up with PCP (4) DVT prophylaxis Priority: Secondary Status: Resolved Hospital course: Ms. Cook is a 51 year old female with prior hx of smoking, GERD. She was admitted for NSTEMI following a complaint of chest pressure as well as difficulty breathing. Troponin was elevated 0.06, 0.21, 0.09. EKG unremarkable. Risk factors for CAD include prior tobacco abuse, family hx. ECHO was unremarkable. LHC showed mild one vessel disease. Patient seen by lead based paint technician, recommend continuation of ASA, Plavix, Lipitor. Follow up with PCP and Isotope Technologist Discharge discussed with: patient, nurse, ada accommodation consultant - Time Spent with Patient Total time spent providing and/or coordinating discharge services: Less than 30 minutes - Discharge Medications Prescriptions: Aspirin 81 mg PO DAILY #30 tab.chew Atorvastatin [Lipitor] 40 mg PO HS #30 tablet Clopidogrel [Plavix] 75 mg PO DAILY #30 tablet Home Medications: Omeprazole [PriLOSEC] 20 mg PO DAILY 07/29/17 [History] Phentermine HCl [Adipex-P] 37.5 mg PO DAILY 07/29/17 [History] Aspirin 81 mg PO DAILY #30 tab.chew 07/30/17 [Rx] Atorvastatin [Lipitor] 40 mg PO HS #30 tablet 07/30/17 [Rx] Clopidogrel [Plavix] 75 mg PO DAILY #30 tablet 07/30/17 [Rx] Nitroglycerin 0.4 mg SL Q5MIN PRN tab.subl 07/30/17 [Rx] Allergies/Adverse Reactions: 3 Allergy/AdvReac Type Severity Reaction Status Date / Time [place] Allergy Hives Uncoded 07/28/17 22:42 Date of admission: 07/29/17 02:15 Primary care physician: PCP NONE Consults: 07/29/17 03:27 Consult to Nutrition [CONS] Routine Comment: Consulting Provider: NUTRITION Reason for Dietary Consult: MST Score 07/29/17 06:55 Consult to Cardiology [CONS] Routine Comment: Consulting Provider: Cardiology Saranya Reason for Consult: NSTEMI Call Completed: No Discharging clinician: Song Gallardo Anticipated date of discharge: 07/30/17 - Constitutional Vitals: Temp Pulse Resp BP Pulse Ox 98.2 F 79 14 128/88 99 07/30/17 10:53 07/30/17 10:53 07/30/17 10:53 07/30/17 10:53 07/30/17 10:53 General appearance: Present: A&O X 3, pleasant, no acute distress, answers questions appropriately - Head Head exam: Present: atraumatic, normocephalic - Eye Eye exam: Present: PERRL, conjuntiva pink, sclera anicteric Pupils: Present: PERRL - Neck Neck exam general surgery: Present: supple, trachea midline. Absent: lymphadenopathy - Respiratory Respiratory exam: Present: CTAB. Absent: accessory muscle use, rales, rhonchi, wheezes - Cardiovascular Cardiovascular exam: Present: RRR, +S1, +S2. Absent: diastolic murmur, gallop, rubs, systolic murmur - GI/Abdominal GI/Abdominal exam: Present: normal bowel sounds, soft, no peritoneal signs. Absent: distended, tenderness - Extremities Exam Extremities exam: Present: warm, radial pulses palpable and symmetrical. Absent : calf tenderness, cyanotic, pedal edema - Neurological Exam Neurological exam: Present: alert, CN II-XII intact, oriented X3, no focal deficits. Absent: pronater drift, facial droop, speech deficit - Skin Skin exam: Present: dry, intact - Patient Status Disposition: Home, Self-Care Condition: Good Functional capacity at discharge: independent ambulation Overall status at discharge: patient is back to baseline - Discharge Instructions Follow Up With: Ro Foote, DIRECTOR OF ACQUISITION MARKETING [Advanced Practice Nurse] - 08/03/17 1:30 pm Additional Instructions: RISK FACTORS: STOP SMOKING: If you smoke, STOP. Smoking or tobacco use significantly increases your risk of heart disease because nicotine causes the arteries to narrow or constrict. It also causes fats to stick to the artery. Your chances of having a heart attack are greatly increased if you continue to smoke. For more information, call the education line for smoking cessation 8-670-VOVDABV EAT A LOW FAT/CHOLESTEROL/SODIUM DIET: This diet may help reduce your chances of having a heart attack. LIFTING: Avoid lifting anything more than 10 pounds for 5-7 days Prior to straining, laughing, sneezing and/or coughing, apply manual pressure directly over insertion site. ACTIVITY: You may walk or climb stairs as tolerated You can resume sexual activity as tolerated In general, you are encouraged to engage in a minimum of 30 minutes or more of moderate intensity physical activity, such as brisk walking, daily or at least 3 -4 times weekly BATHING Do not submerge the site into water (bath tub, hot tub, swimming pool) for 1 week. This can be a source for infection into the blood stream. You may shower after 24 hours SITE CARE: After 24 hours, you may remove the dressing and leave the site open to air. Keep the site clean and dry. Clean gently and pat dry. You can expect bruising and tenderness that gradually resolve within a week or two. Return to work as instructed per your physician Resume driving as instructed per physician Keep all scheduled follow up appointments Resume medications as instructed IMPORTANT: If prescribed a Platelet Aggregation Inhibitor such as, Plavix, Brilinta or Effient: Duration of therapy is minimum one year These medications are often used in combination with Aspirin in prevention of future heart attacks Never discontinue unless consult with your Isotope Technologist STROKE (CVA) Risk factors for a stroke are: Age, cigarette smoking, diabetes, excessive alcohol consumption, family history, high blood pressure, overweight, physical inactivity, prior stroke, heart attack, diagnosis of carotid artery stenosis or other artery disease. Warning signs: Sudden numbness or weakness of the face, arm or leg; especially on one side of the body, sudden confusion, trouble speaking or understanding, sudden trouble seeing in one or both eyes, sudden trouble walking, dizziness, loss of balance or coordination, sudden severe headache with no cause. Call 911 or go to the Emergency Room. CONGESTIVE HEART FAILURE: If you have been diagnosed with Congestive Heart Failure (CHF) and your symptoms return, make an appointment with your physician Weigh yourself daily. Notify your physician if you have a weight gain of two or more pounds in one day or five or more pounds in one week. If you experience any difficulty breathing, please call 911 BLEEDING: Although the risk of bleeding is minimal, it can happen. If you have any bleeding from the site, apply firm pressure above the puncture site for 10-15 minutes. If the bleeding does not stop, continue manual pressure and call 911 Contact your physician if: You develop a fever greater than 101 degrees Fahrenheit Your site becomes reddened or has any drainage You have an increase in pain or burning at the site or if a large knot forms at the site. If you experience chest pain, shortness of breath, dizziness, or extreme tiredness, stop the activity and rest. Please notify your physicians office if you experience any of these symptoms and they are not relieved by rest please call 911! - Diet and Activity Activity: resume usual activities as tolerated Diet: diabetic diet
--- NOTE | 2017-08-01 05:50 | Electrocardiograph Report ---
[address] [place], [place] [address] Test Date: 2017-07-28 Pat Name: Aretha Cook Department: 102 Room: 2N5 Gender: F Hr Administrator: : 1965 Requested By: [id number] Order Number: [id number] Reading MD: Dipesh Cook Measurements Intervals [place] Rate: 57 P: 6 NC: 138 QRS: 45 QRSD: 94 T: 42 QT: 396 QTc: 389 Interpretive Statements SINUS BRADYCARDIA BASELINE ARTIFACT Electronically Signed On 08-01-2017 5:48:22 EDT by Dipseh Cook
--- NOTE | 2017-08-01 05:50 | Electrocardiograph Report ---
[address] [place], [place] [address] Test Date: 2017-07-29 Pat Name: Aretha Cook Department: 102 Room: 2N5 Gender: F Automation Machine Operator: [place] : 1965 Requested By: Loreto Lovelace Order Number: [id number] Reading MD: Dipesh Cook Measurements Intervals [place] Rate: 71 P: 47 [place]: 164 QRS: 20 QRSD: 97 T: 28 QT: 422 QTc: 444 Interpretive Statements SINUS RHYTHM Electronically Signed On 08-01-2017 5:49:05 EDT by Dipesh Cook
== END 2017-07-30 14:45 | disposition home or self-care (01) ==
LOC: EMEROO 22:26 → 2NENU 22:26
PROVIDERS: ADMIT Internal Medicine; ATTEND Internal Medicine